=== PATIENT | female | born 1985 | race Two or more races ===

== ENCOUNTER 2022-03-25 05:11 | Inpatient (IN) | payer OTHER ==
[~2022-03-25] VITALS: Ht 160 cm; Wt 68.5 kg
[2022-03-25] MEDS ORDERED: IRON256 MG PO (06:47)
[2022-03-25] MEDS ORDERED: PRENATAL CAPLE1 EAC1 PO (06:48)
== END 2022-03-29 12:26 | disposition home or self-care (01) | DRG 785 ==
LOC: OB/GYN 05:11 → LDR 05:11 → OB/GYN 03-26 18:58
PROVIDERS: ADMIT Obstetrics & Gynecology Obstetrics; ATTEND Obstetrics & Gynecology Obstetrics
PROC: 4A1HXCZ Monitoring of Products of Conception, Cardiac Rate, External Approach (ICD-10-PCS; 2022-03-25)
PROC: 0UB70ZZ Excision of Bilateral Fallopian Tubes, Open Approach (ICD-10-PCS; 2022-03-26)
PROC: 10D00Z1 Extraction of Products of Conception, Low, Open Approach (ICD-10-PCS; principal; 2022-03-26 16:20)
DX: O62.1 Secondary uterine inertia (principal); Z30.2 Encounter for sterilization; Z3A.40 40 weeks gestation of pregnancy; Z37.0 Single live birth; Z20.822 Contact with and (suspected) exposure to COVID-19